=== PATIENT | male | born 1990 ===

== ENCOUNTER 2016-08-21 14:02 | Emergency (ER) | payer OTHER ==
--- NOTE | 2016-08-21 14:20 | ED CLINICAL REPORT ---
Clinical Report - Physicians/Mid Levels [facility] [address] [place] [place] [address] 08/21/2016 14:03 [id number] Time Seen: 14:17 Aug 21 2016. Arrived- By private vehicle. Historian- patient. HISTORY OF PRESENT ILLNESS Chief Complaint: Injury to the left 5th (little) finger. The injury happened just prior to arrival. The patient sustained a laceration. Patient is experiencing mild pain. Patient denies injury to the head or neck. ( 26-year-old male, who sustained a laceration to his left fifth digit within the last hour, from a sharp object. History of fracture to the area of the fifth digit nonsurgical.). REVIEW OF SYSTEMS The patient sustained a laceration. No tingling. All systems otherwise negative, except as recorded above. PAST HISTORY The patient's dominant hand is the left. He has had a prior injury to the same area. SOCIAL HISTORY Smoker- current status unknown. Alcohol use. 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 PHYSICAL EXAM Appearance: Alert. Head: Head atraumatic. ENT: Ears normal. Nose normal. Neck: Normal inspection. Neck supple. CVS: Normal heart rate and rhythm. Heart sounds normal. Respiratory: No respiratory distress. Breath sounds normal. Skin: Skin warm. Extremities: Left little finger: (arciniega superficial/ partial thickness/ gaping lac 2 cm). No wrist injury. Extremities otherwise negative. Neuro, Vascular and Tendons: Vascular status intact. Capillary refill not prolonged. Motor intact. No functional tendon deficit. PROGRESS AND PROCEDURES Laceration Repair: Time: 14:33 Aug 21 2016. Location: (left 5th digit). Time-out completed immediately before the procedure. Length: 2 cm. Complexity: simple (local anesthesia used and sutured). Wound depth/shape- linear and involving fascia. Wound is clean. Neuro/vascular/tendon status. Tendon examined. No sensory deficit or motor deficit distally. No tendon deficit or laceration. Anesthesia provided by digital block using 0.50% Marcaine. Prepped with Betadine. Wound explored, cleansed, irrigated and examined to the base in bloodless field. Subcutaneous closure: interrupted 5-0 (7 sutures, non absorb). Post-procedure: he is stable and there are no complications. Bleeding is controlled and neuro-vascular status is intact distal to the wound. Dressing applied. Tetanus immunization up-to-date. Course of Care: NO signs of fb/ secondary infection, full rom, good distal ns. NO osseous tenderness. Tolerated procedure well. Stable. Patient is stable. Patient/family counseled. Disposition: Discharged. Condition: good. CLINICAL IMPRESSION Single laceration to the left little finger. INSTRUCTIONS Protect wound and keep wound area clean. Apply bacitracin twice daily. Sutures should be removed in seven days. ([address], [place] [address] < 1 mi ). Follow-up: Follow up with your doctor in seven days. (Electronically signed by Rosita Thomas P.A.-C 08/21/2016 14:33)
--- NOTE | 2016-08-21 14:20 | ED CLINICAL REPORT ---
Clinical Report - Physicians/Mid Levels [facility] [address] [place] [address] 08/21/2016 14:03 [id number] Time Seen: 14:17 Aug 21 2016. Arrived- By private vehicle. Historian- patient. HISTORY OF PRESENT ILLNESS Chief Complaint: Injury to the left 5th (little) finger. The injury happened just prior to arrival. The patient sustained a laceration. Patient is experiencing mild pain. Patient denies injury to the head or neck. ( 26-year-old male, who sustained a laceration to his left fifth digit within the last hour, from a sharp object. History of fracture to the area of the fifth digit nonsurgical.). REVIEW OF SYSTEMS The patient sustained a laceration. No tingling. All systems otherwise negative, except as recorded above. PAST HISTORY The patient's dominant hand is the left. He has had a prior injury to the same area. SOCIAL HISTORY Smoker- current status unknown. Alcohol use. 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 PHYSICAL EXAM Appearance: Alert. Head: Head atraumatic. ENT: Ears normal. Nose normal. Neck: Normal inspection. Neck supple. CVS: Normal heart rate and rhythm. Heart sounds normal. Respiratory: No respiratory distress. Breath sounds normal. Skin: Skin warm. Extremities: Left little finger: (arciniega superficial/ partial thickness/ gaping lac 2 cm). No wrist injury. Extremities otherwise negative. Neuro, Vascular and Tendons: Vascular status intact. Capillary refill not prolonged. Motor intact. No functional tendon deficit. PROGRESS AND PROCEDURES Laceration Repair: Time: 14:33 Aug 21 2016. Location: (left 5th digit). Time-out completed immediately before the procedure. Length: 2 cm. Complexity: simple (local anesthesia used and sutured). Wound depth/shape- linear and involving fascia. Wound is clean. Neuro/vascular/tendon status. Tendon examined. No sensory deficit or motor deficit distally. No tendon deficit or laceration. Anesthesia provided by digital block using 0.50% Marcaine. Prepped with Betadine. Wound explored, cleansed, irrigated and examined to the base in bloodless field. Subcutaneous closure: interrupted 5-0 (7 sutures, non absorb). Post-procedure: he is stable and there are no complications. Bleeding is controlled and neuro-vascular status is intact distal to the wound. Dressing applied. Tetanus immunization up-to-date. Course of Care: NO signs of fb/ secondary infection, full rom, good distal ns. NO osseous tenderness. Tolerated procedure well. Stable. Patient is stable. Patient/family counseled. Disposition: Discharged. Condition: good. CLINICAL IMPRESSION Single laceration to the left little finger. INSTRUCTIONS Protect wound and keep wound area clean. Apply bacitracin twice daily. Sutures should be removed in seven days. ([address], [place] [address] < 1 mi ). Follow-up: Follow up with your doctor in seven days. (Electronically signed by Rosita Thomas P.A.-C 08/21/2016 14:33)
--- NOTE | 2016-08-21 14:21 | ED NURSING NOTES ---
Clinical Report - Nurses [place] [address] [place] [address] 08/21/2016 14:03 Patient: JORGE MORE TRIAGE Triage time 1414 PM. Chief Complaint: INJURY TO LEFT HAND. --14:19 Lamonte Martínez R.N. 14:16 08/21/16. BP: 107/66. HR: 91. RR: 16. O2 saturation: 97%. Temp: 97.8 F (oral). Pain level now: 05/01. --14:19 Lamonte Martínez R.N. Weight: 58.9 kg stated. Height/Length: 65 inches Per Patient. BMI: 21.6. --14:19 Lamonte Martínez R.N. Medications None. --14:19 Lamonte Martínez R.N. Allergies No Known Drug Allergy. --14:19 Lamonte Martínez R.N. History Arrived by private vehicle. Historian: patient. Accompanied by family. This occurred just prior to arrival. He sustained a laceration from a sharp edge. ( Patient presents to the ED with symptoms of a laceration to the left 5th digit with a sharp object just prior to arrival.). Treatment DELI BAKERY CLERK: None. PAST MEDICAL HX: Tetanus status: up-to-date. SOCIAL HX: Heavy tobacco smoker (cigarette)- less than 1 pack per day. Alcohol use. Patient is a recovering alcoholic. (8 month sober). History of drug use. (8 months sober). FALL RISK ASSESSMENT: Fall risk assessment completed. No fall risk identified. NUTRITIONAL RISK ASSESSMENT: The nutritional risk assessment revealed no deficiencies. FUNCTIONAL ASSESSMENT: Functional assessment: no impairments noted. LEARNING NEEDS ASSESSMENT: The learning needs assessment revealed no barriers. SKIN INTEGRITY ASSESSMENT: Skin integrity risk assessment completed. No skin integrity risk identified. --14:19 Lamonte Martínez R.N. PROBLEMS: Drug Poisoning. Lifestyle / Substance Problems. --14:19 Lamonte Martínez R.N. ADDITIONAL SURGERIES: no known surgeries. Interventions ID band on patient. --14:19 Lamonte Martínez R.N. PHYSICAL ASSESSMENT Ambulatory to room. GENERAL / NEURO / PSYCH: Oriented X 4. Alert. Appears in no acute distress. EXTREMITIES: Capillary refill is less than 2 seconds in the extremities. Extremity pulses are within normal limits. Extremities exhibit normal ROM. Neuro-vascular status intact to the extremity. Tip of left little finger: 2.0 cm laceration with bleeding. SKIN: Skin intact. Skin is warm and dry. --14:21 Lamonte Martínez R.N. NURSING PROGRESS NOTES Call light placed in reach. Side rails up x 1. Bed placed in lowest position. Brakes of bed on. --14:21 Lamonte Martínez R.N. DISPOSITION / DISCHARGE Condition at departure: improved. The goals identified in the patient's plan of care were met. No learning barriers present. Discharge instructions provided and reviewed with the patient. Reviewed medication(s) side effects, precautions, dosing and course information. Reviewed wound care instructions. Reviewed referral to a primary care physician. Patient verbalized understanding. Written instructions provided in Bulgarian. The patient was discharged home and accompanied by family. He left the Emergency Department ambulatory and via private vehicle. Parent driving. FALL RISK ASSESSMENT: Fall risk assessment completed. No fall risk identified. --14:45 Lamonte Martínez R.N. Departure time: 1445 PM. --14:46 Lamonte Martínez R.N. Locked/Released at 08/21/2016 14:47 by Lamonte Martínez R.N.
--- NOTE | 2016-08-21 14:21 | ED NURSING NOTES ---
Clinical Report - Nurses [place] [address] [place] [address] 08/21/2016 14:03 Patient: JORGE MORE TRIAGE Triage time 1414 PM. Chief Complaint: INJURY TO LEFT HAND. --14:19 Lamonte Martínez R.N. 14:16 08/21/16. BP: 107/66. HR: 91. RR: 16. O2 saturation: 97%. Temp: 97.8 F (oral). Pain level now: 05/01. --14:19 Lamonte Martínez R.N. Weight: 58.9 kg stated. Height/Length: 65 inches Per Patient. BMI: 21.6. --14:19 Lamonte Martínez R.N. Medications None. --14:19 Lamonte Martínez R.N. Allergies No Known Drug Allergy. --14:19 Lamonte Martínez R.N. History Arrived by private vehicle. Historian: patient. Accompanied by family. This occurred just prior to arrival. He sustained a laceration from a sharp edge. ( Patient presents to the ED with symptoms of a laceration to the left 5th digit with a sharp object just prior to arrival.). Treatment SENIOR AUDIT MANAGER: None. PAST MEDICAL HX: Tetanus status: up-to-date. SOCIAL HX: Heavy tobacco smoker (cigarette)- less than 1 pack per day. Alcohol use. Patient is a recovering alcoholic. (8 month sober). History of drug use. (8 months sober). FALL RISK ASSESSMENT: Fall risk assessment completed. No fall risk identified. NUTRITIONAL RISK ASSESSMENT: The nutritional risk assessment revealed no deficiencies. FUNCTIONAL ASSESSMENT: Functional assessment: no impairments noted. LEARNING NEEDS ASSESSMENT: The learning needs assessment revealed no barriers. SKIN INTEGRITY ASSESSMENT: Skin integrity risk assessment completed. No skin integrity risk identified. --14:19 Lamonte Martínez R.N. PROBLEMS: Drug Poisoning. Lifestyle / Substance Problems. --14:19 Lamonte Martínez R.N. ADDITIONAL SURGERIES: no known surgeries. Interventions ID band on patient. --14:19 Lamonte Martínez R.N. PHYSICAL ASSESSMENT Ambulatory to room. GENERAL / NEURO / PSYCH: Oriented X 4. Alert. Appears in no acute distress. EXTREMITIES: Capillary refill is less than 2 seconds in the extremities. Extremity pulses are within normal limits. Extremities exhibit normal ROM. Neuro-vascular status intact to the extremity. Tip of left little finger: 2.0 cm laceration with bleeding. SKIN: Skin intact. Skin is warm and dry. --14:21 Lamonte Martínez R.N. NURSING PROGRESS NOTES Call light placed in reach. Side rails up x 1. Bed placed in lowest position. Brakes of bed on. --14:21 Lamonte Martínez R.N. DISPOSITION / DISCHARGE Condition at departure: improved. The goals identified in the patient's plan of care were met. No learning barriers present. Discharge instructions provided and reviewed with the patient. Reviewed medication(s) side effects, precautions, dosing and course information. Reviewed wound care instructions. Reviewed referral to a primary care physician. Patient verbalized understanding. Written instructions provided in Syriac. The patient was discharged home and accompanied by family. He left the Emergency Department ambulatory and via private vehicle. Parent driving. FALL RISK ASSESSMENT: Fall risk assessment completed. No fall risk identified. --14:45 Lamonte Martínez R.N. Departure time: 1445 PM. --14:46 Lamonte Martínez R.N. Locked/Released at 08/21/2016 14:47 by Lamonte Martínez R.N.
--- NOTE | 2016-08-21 14:48 | ED MED RECONCILIATION SUMMARY ---
Patient: JORGE MORE Medication Reconciliation Report [facility] VisitID: [id number] [address] [place] [address] 26y, M Registration Date/Time: 08/21/2016 Weight: 58.9 kg Height/Length: 65 in. BMI: 21.6 ALLERGIES: No Known Drug Allergy The patient's Home Medications are listed below: NONE. The source(s) of the original Home Medication information: Not obtained. The following Medications were given to the patient in the Emergency Department: None. The following Medications were prescribed to the patient: None.
--- NOTE | 2016-08-21 14:48 | ED DISCHARGE INSTRUCTIONS ---
Patient: JORGE MORE General Instructions [facility] VisitID: [id number] [address] [place] [address] 26y, M Registration Date/Time: 08/21/2016 Single laceration to the left little finger. INSTRUCTIONS Protect wound and keep wound area clean. Apply bacitracin twice daily. Sutures should be removed in seven days. ([address] [place] [address] < 1 mi ). Follow-up: Follow up with your doctor in seven days. ADDITIONAL INFORMATION Laceration, Extremity (Sutures, Librado, Or Tape) A laceration is a cut through the skin. This will usually require stitches (sutures) or librado if it is deep. Minor cuts may be treated with surgical tape closures. Home care The following guidelines will help you care for your laceration at home: Keep the wound clean and dry. If a bandage was applied and it becomes wet or dirty, replace it. Otherwise, leave it in place for the first 24 hours, then change it once a day or as directed. If stitches or librado were used, clean the wound daily: After removing the bandage, wash the area with soap and water. Use a wet cotton swab to loosen and remove any blood or crust that forms. After cleaning, keep the wound clean and dry. Talk with your doctor before applying any antibiotic ointment to the wound. Reapply the bandage. You may remove the bandage to shower as usual after the first 24 hours, but do not soak the area in water (no swimming) until the stitches or librado are removed. If surgical tape closures were used, keep the area clean and dry. If it becomes wet, blot it dry with a towel. The doctor may prescribe an antibiotic cream or ointment to prevent infection. Do not stop taking this medication until you have finished the prescribed course or the doctor tells you to stop. The doctor may also prescribe medications for pain. Follow the doctors instructions for taking these medications. If you have chronic liver or kidney disease or ever had a stomach ulcer or GI bleeding, talk with your doctor before using these medicines. Follow-up care Follow up with your health care provider. Most skin wounds heal within ten days. However, an infection may sometimes occur despite proper treatment. Therefore, check the wound daily for the signs of infection listed below. Stitches and librado should be removed within 714 days. If surgical tape closures were used, you may remove them after 10 days, if they have not fallen off by then. Notify your doctor if you notice persistent numbness or weakness in the injured extremity. (Note:A radiologist will review any X-rays that were taken. We will notify you of any new findings that may affect your care.) When to seek medical care Get prompt medical attention if any of these occur: Increasing pain in the wound Redness, swelling, or pus coming from the wound Fever of 100.4F (38C) or higher, or as directed by your health care provider If stitches or librado come apart or fall out before your next appointment If the surgical tape closures fall off within seven days, or the wound edges re-open Bleeding not controlled by direct pressure Laceration, Extremity (Sutures, Librado, Or Tape) A laceration is a cut through the skin. This will usually require stitches (sutures) or librado if it is deep. Minor cuts may be treated with surgical tape closures. Home care The following guidelines will help you care for your laceration at home: Keep the wound clean and dry. If a bandage was applied and it becomes wet or dirty, replace it. Otherwise, leave it in place for the first 24 hours, then change it once a day or as directed. If stitches or librado were used, clean the wound daily: After removing the bandage, wash the area with soap and water. Use a wet cotton swab to loosen and remove any blood or crust that forms. After cleaning, keep the wound clean and dry. Talk with your doctor before applying any antibiotic ointment to the wound. Reapply the bandage. You may remove the bandage to shower as usual after the first 24 hours, but do not soak the area in water (no swimming) until the stitches or librado are removed. If surgical tape closures were used, keep the area clean and dry. If it becomes wet, blot it dry with a towel. The doctor may prescribe an antibiotic cream or ointment to prevent infection. Do not stop taking this medication until you have finished the prescribed course or the doctor tells you to stop. The doctor may also prescribe medications for pain. Follow the doctors instructions for taking these medications. If you have chronic liver or kidney disease or ever had a stomach ulcer or GI bleeding, talk with your doctor before using these medicines. Follow-up care Follow up with your health care provider. Most skin wounds heal within ten days. However, an infection may sometimes occur despite proper treatment. Therefore, check the wound daily for the signs of infection listed below. Stitches and librado should be removed within 714 days. If surgical tape closures were used, you may remove them after 10 days, if they have not fallen off by then. Notify your doctor if you notice persistent numbness or weakness in the injured extremity. (Note:A radiologist will review any X-rays that were taken. We will notify you of any new findings that may affect your care.) When to seek medical care Get prompt medical attention if any of these occur: Increasing pain in the wound Redness, swelling, or pus coming from the wound Fever of 100.4F (38C) or higher, or as directed by your health care provider If stitches or librado come apart or fall out before your next appointment If the surgical tape closures fall off within seven days, or the wound edges re-open Bleeding not controlled by direct pressure You have been given the following additional information: Laceration, Extrem (Suture, Staple, Or Tape) Laceration, Extrem (Suture, Staple, Or Tape) (Electronically signed by Rosita Thomas P.A.-C 08/21/2016 14:33)
--- NOTE | 2016-08-21 14:48 | ED DISCHARGE INSTRUCTIONS ---
Patient: JORGE MORE General Instructions [facility] VisitID: [id number] [address] [place] [address] 26y, M Registration Date/Time: 08/21/2016 Single laceration to the left little finger. INSTRUCTIONS Protect wound and keep wound area clean. Apply bacitracin twice daily. Sutures should be removed in seven days. ([address] [place] [address] < 1 mi ). Follow-up: Follow up with your doctor in seven days. ADDITIONAL INFORMATION Laceration, Extremity (Sutures, Librado, Or Tape) A laceration is a cut through the skin. This will usually require stitches (sutures) or librado if it is deep. Minor cuts may be treated with surgical tape closures. Home care The following guidelines will help you care for your laceration at home: Keep the wound clean and dry. If a bandage was applied and it becomes wet or dirty, replace it. Otherwise, leave it in place for the first 24 hours, then change it once a day or as directed. If stitches or librado were used, clean the wound daily: After removing the bandage, wash the area with soap and water. Use a wet cotton swab to loosen and remove any blood or crust that forms. After cleaning, keep the wound clean and dry. Talk with your doctor before applying any antibiotic ointment to the wound. Reapply the bandage. You may remove the bandage to shower as usual after the first 24 hours, but do not soak the area in water (no swimming) until the stitches or librado are removed. If surgical tape closures were used, keep the area clean and dry. If it becomes wet, blot it dry with a towel. The doctor may prescribe an antibiotic cream or ointment to prevent infection. Do not stop taking this medication until you have finished the prescribed course or the doctor tells you to stop. The doctor may also prescribe medications for pain. Follow the doctors instructions for taking these medications. If you have chronic liver or kidney disease or ever had a stomach ulcer or GI bleeding, talk with your doctor before using these medicines. Follow-up care Follow up with your health care provider. Most skin wounds heal within ten days. However, an infection may sometimes occur despite proper treatment. Therefore, check the wound daily for the signs of infection listed below. Stitches and librado should be removed within 714 days. If surgical tape closures were used, you may remove them after 10 days, if they have not fallen off by then. Notify your doctor if you notice persistent numbness or weakness in the injured extremity. (Note:A radiologist will review any X-rays that were taken. We will notify you of any new findings that may affect your care.) When to seek medical care Get prompt medical attention if any of these occur: Increasing pain in the wound Redness, swelling, or pus coming from the wound Fever of 100.4F (38C) or higher, or as directed by your health care provider If stitches or librado come apart or fall out before your next appointment If the surgical tape closures fall off within seven days, or the wound edges re-open Bleeding not controlled by direct pressure Laceration, Extremity (Sutures, Librado, Or Tape) A laceration is a cut through the skin. This will usually require stitches (sutures) or librado if it is deep. Minor cuts may be treated with surgical tape closures. Home care The following guidelines will help you care for your laceration at home: Keep the wound clean and dry. If a bandage was applied and it becomes wet or dirty, replace it. Otherwise, leave it in place for the first 24 hours, then change it once a day or as directed. If stitches or librado were used, clean the wound daily: After removing the bandage, wash the area with soap and water. Use a wet cotton swab to loosen and remove any blood or crust that forms. After cleaning, keep the wound clean and dry. Talk with your doctor before applying any antibiotic ointment to the wound. Reapply the bandage. You may remove the bandage to shower as usual after the first 24 hours, but do not soak the area in water (no swimming) until the stitches or librado are removed. If surgical tape closures were used, keep the area clean and dry. If it becomes wet, blot it dry with a towel. The doctor may prescribe an antibiotic cream or ointment to prevent infection. Do not stop taking this medication until you have finished the prescribed course or the doctor tells you to stop. The doctor may also prescribe medications for pain. Follow the doctors instructions for taking these medications. If you have chronic liver or kidney disease or ever had a stomach ulcer or GI bleeding, talk with your doctor before using these medicines. Follow-up care Follow up with your health care provider. Most skin wounds heal within ten days. However, an infection may sometimes occur despite proper treatment. Therefore, check the wound daily for the signs of infection listed below. Stitches and librado should be removed within 714 days. If surgical tape closures were used, you may remove them after 10 days, if they have not fallen off by then. Notify your doctor if you notice persistent numbness or weakness in the injured extremity. (Note:A radiologist will review any X-rays that were taken. We will notify you of any new findings that may affect your care.) When to seek medical care Get prompt medical attention if any of these occur: Increasing pain in the wound Redness, swelling, or pus coming from the wound Fever of 100.4F (38C) or higher, or as directed by your health care provider If stitches or librado come apart or fall out before your next appointment If the surgical tape closures fall off within seven days, or the wound edges re-open Bleeding not controlled by direct pressure You have been given the following additional information: Laceration, Extrem (Suture, Staple, Or Tape) Laceration, Extrem (Suture, Staple, Or Tape) (Electronically signed by Rosita Thomas P.A.-C 08/21/2016 14:33)
--- NOTE | 2016-08-21 14:48 | ED MAR SUMMARY ---
..... Medication Administration Record [facility] [address], [place] [id number] Patient: JORGE MORE Visit ID: [id number] 26y, M Weight: 58.9 kg Height/Length: 65 in BMI: 21.6 ALLERGIES: No Known Drug Allergy
--- NOTE | 2016-08-21 14:48 | ED MAR SUMMARY ---
..... Medication Administration Record [facility] [address] [place], [place] [id number] Patient: JORGE MORE Visit ID: [id number] 26y, M Weight: 58.9 kg Height/Length: 65 in BMI: 21.6 ALLERGIES: No Known Drug Allergy
--- NOTE | 2016-08-21 14:48 | ED MED RECONCILIATION SUMMARY ---
Patient: JORGE MORE Medication Reconciliation Report [facility] VisitID: [id number] [address] [place] [place] [address] 26y, M Registration Date/Time: 08/21/2016 Weight: 58.9 kg Height/Length: 65 in. BMI: 21.6 ALLERGIES: No Known Drug Allergy The patient's Home Medications are listed below: NONE. The source(s) of the original Home Medication information: Not obtained. The following Medications were given to the patient in the Emergency Department: None. The following Medications were prescribed to the patient: None.
== END 2016-08-21 14:45 | disposition home or self-care (01) ==
LOC: ED SRH 14:02
DX: S61.217A Laceration without foreign body of left little finger without damage to nail, initial encounter (principal); W45.8XXA Other foreign body or object entering through skin, initial encounter; F17.210 Nicotine dependence, cigarettes, uncomplicated